=== PATIENT | female | born 1980 | race Caucasian/White ===

== ENCOUNTER → 2024-11-08 07:53 | Outpatient (REF) | payer BC, SELFPAY ==
--- OUTSIDE RECORDS SUMMARY | 2024-11-08 07:58 | XMS_ITS | Encounter Summary ---
Author Organization [facility] Address [address] [place] [address] [place] [address] Phone Care Team Providers Care Wallboard Worker Name Role Phone Kimberlyn Hill ECHO TECHNICIAN Primary Care Provider [phone] Marlon Leos MD Unavailable Edwige Blanchard Unavailable [phone] Madison Mcdonough OD Unavailable Edwige Swain OD Unavailable [phone] Sid Luke OD Unavailable [phone] Susana Rivera MD Unavailable Katheryn Alarcon Unavailable [phone] Encounter Details Date Type Department Care Team (Late st Contact Info) Description 03/21/2022 Transcribe Orders [facility] [address] [place] [address] Kimberlyn Hill CNP [address] [facility] [place] [address] Social History Tobacco Use Types Packs/Day Years Used Date Smoking Tobacco: Never Smokeless Tobacco: Never Alcohol Use Standard Drinks/Week Comments Not Currently 0 (1 standard drink = 0.6 oz pure alcohol) None since summer 2019 (2020) Child or Family Care Answer Date Record ed Do you have problems with on e of the following making it difficult for you to work, study, or receive health care? No 01/22/2021 Education Answer Date Recorded Are you interested in help w ith more adult education (for example, completing high school, GED, job training, learning the [place] language, technical skills, or developing parenting skills)? No 01/22/2021 Are you concerned about learning? Not on file 01/22/2021 Not on file 01/22/2021 Not on file 01/22/2021 Food Answer Date Recorded Within the past 6 months we worried whether our food would run out before we got money to buy more. Never True 01/22/2021 Within the past 6 months the food we bought just didn't last and we didn't have enough money to get more. Never True Paying for Meds Answer Date Recorded Do you have trouble paying for medicines? No 01/22/2021 Paying Utility Bills Answer Date Record ed Do you have trouble paying your heating or elect ricity bill? No 01/22/2021 Transportation Answer Date Recorded Has the lack of transportati on kept you from medical appointments or from getting medications? 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 Not on file Not on file documented as of this encounter Plan of Treatment Upcoming Encounters Date Type Department Care Team (Late st Contact Info) Description 04/14/2023 Procedure Pass [address] [address] 02/07/2025 1:30 PM EST Office Visit [facility] [address] [place] [address] Kimberlyn Hill CNP [address] [place] [address] 02/14/2025 2:00 PM EST Appointment [address] [address] Kimberlyn Hill CNP [address] [facility] [place] [address] [email or web address] 08/22/2025 1:00 PM EDT Office [facility] [address] [place] [address] Kimberlyn Hill CNP [address] [facility] [place] [address] [email or web address] documented as of this encounter Visit Diagnoses Not on filedocumented in this encounter Additional Health Concerns Assessment Noted Time PHQ-2 Depression Total Score: 0 01/23/20 21 1:29 PM EST documented as of this encounter Care Teams Wallboard Worker Relationship Specialty Start Date End Date Kimberlyn Hill CNP [address] [facility] [place] [address] PCP - General Family Medicine 06/04/18 Marlon Leos MD [address] [place] [address], [address] [place] [address] [email or web address] Insurance Assigned Provider 05/13/23 Edwige Blanchard PA [address] [place] [address] Unknown Provider Specialty 01/22/21 Madison Mcdonough OD [address] [place] [address] Optometry 01/22/21 08/05/24 Edwige Swain OD [address] [place] [address] Optometry 04/14/23 08/05/24 Sid Luke OD [address] [facility] [address] [place] [address] Optometry 08/06/24 Susana Rivera MD [address] [place] [address], [address] [place] [address] [email or web address] Obstetrics and Gynecology 08/06/24 Katheryn Alarcon PA [address] [place] [address] [email or web address] Physician Color Television Console Monitor 08/06/24 documented as of this encounter Additional Source Comments The information contained in this document represents components of the legal health record. It is not the complete legal health record.[facility]
--- OUTSIDE RECORDS SUMMARY | 2024-11-08 07:58 | XMS_ITS | Encounter Summary ---
Author Organization [facility] Address [address] [place] [address] [place] [address] Phone Care Team Providers Care Counter Hand Name Role Phone Kimberlyn Hill HUMANE OFFICER Primary Care Provider [phone] Marlon Leos MD Unavailable Edwige Blanchard PA Unavailable [phone] Madison Mcdonough OD Unavailable Edwige Swain OD Unavailable Sid Luke OD Unavailable [phone] Susana Rivera MD Unavailable Katheryn Alarcon PA Unavailable Reason for Visit * Reason Onset Date Comments Animal Bite 08/08/2022 Encounter Details Date Type Department Care Team (Late st Contact Info) Description 08/08/2022 Nurse Triage [facility] [address] [place] [address] [place] [address] Kimberlyn Hill CNP [address] [facility] [place] [address] Animal Bite Social History Tobacco Use Types Packs/Day Years Used Date Smoking Tobacco: Never Smokeless Tobacco: Never Alcohol Use Standard Drinks/Week Comments Not Currently 0 (1 standard drink = 0.6 oz pure alcohol) None since summer 2019 (2022) Child or Family Care Answer Date Record ed Do you have problems with on e of the following making it difficult for you to work, study, or receive health care? No 04/06/2022 Education Answer Date Recorded Are you interested in help w ith more adult education (for example, completing high school, GED, job training, learning the [place] language, technical skills, or developing parenting skills)? No 04/06/2022 Food Answer Date Recorded Within the past 6 months we worried whether our food would run out before we got money to buy more. Never True 04/06/2022 Within the past 6 months the food we bought just didn't last and we didn't have enough money to get more. Never True Residential Stability Answer Date Recor ded What is your housing situation today? I have sharlene sing 04/06/2022 How many times have you move d in the past 12 months? Zero (I did not move) 04/06/2022 Paying for Meds Answer Date Recorded Do you have trouble paying for medicines? No 04/06/2022 Paying Utility Bills Answer Date Record ed Do you have trouble paying your heating or elect ricity bill? No 04/06/2022 Transportation Answer Date Recorded Has the lack of transportati on kept you from medical appointments or from getting medications? No 04/06/2022 Unemployment Answer Date Recorded Are you currently unemployed or working on a part-time or temporary basis, and looking for work? No 04/06/2022 Digital Access Answer Date Recorded No 07/04/2022 No 07/04/2022 Reliable internet access at home? Not on file 07/04/2022 Device with a working camera? 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 The cat ran up to her and bit her lower leg.There are 4 puncture bites from cat's top and bottom teeth. She has been fostering this cat so they do not know herwhole background. The cat has had rabies shots. She describes the wounds as red, swollen, and tender to touch. There are red bands around each puncture bite. There are 1/2 red streaks from one of the bites. She has been cleaning the wounds in the shower, she initially cleaned them with soap and water and has been putting bacitracin on them since this happened. She noticed some clear discharge from the wounds yesterday but nothing today. No reports of pus or yellow/green discharge. No fevers, no headaches or feelings of being unwell. She has not had any tetanus shots in the past 5 years. Nurse Triage Encounter Note Reason for Triage Radha Hopper contacted office for Animal Bite Call Disposition Schedule Same Day Visit/Appt Patient/caregiver understands and will follow disposition: Yes Patient/caregiver understands and will follow care advice: Yes, Plans To Follow Advice Disposition Comments: Protocols used: Animal Eius-Blykb-Zi Care Advice Given Care Advice Patient/Caregiver understands and will follow care advice?: Yes, plans to follow advice GO TO OFFICE NOW: * You need to be examined. Come into the office right now. CLEAN THE WOUND: * Wash all bites and scratches right away with soap and water for 5 minutes. * Then rinse the area with water for 2 to 3 minutes. * This will help decrease the chance of infection. ANTIBIOTIC OINTMENT: * Put a small amount of antibiotic ointment on the wound once a day for 3 days. * You can get this rmay-rjm-zakascl at a drugstore. Patient will call back with additional questions or if symptoms change or worsen Edwige Motta RN Reason for Disposition and Assessment Reason for Disposition ??? Puncture wound (hole through the skin) from cat (teeth or claws) ??? Looks infected (spreading redness, red streak, or pus) Protocols used: ANIMAL [id number] * Chary Ryan - 08/08/2022 9:38 AM EDT Patient states she has a cat bite that happened about 2 days ago. There are four puncture varghese on her leg. She said the area around the varghese are red and painful. She is wondering if it could be infected and would like to pls be contacted by nursing Please advise. Thank you documented in this encounter Plan of Treatment Upcoming Encounters Date Type Department Care Team (Late st Contact Info) Description 04/14/2023 Procedure Pass [address] [id number] 02/07/2025 1:30 PM EST Office Visit [address] [place] [address] Kimberlyn Hill CNP [address] [place] [address], [address] [place] [address] 02/14/2025 2:00 PM EST Appointment [address] [address] Kimberlyn Hill CNP [address] [place] [address], [address] [place] [address] 08/22/2025 1:00 PM EDT Office Visit [address] [address] Kimberlyn Hill CNP [address] [place] [address], [address] [place] [address] documented as of this encounter Visit Diagnoses Not on filedocumented in this encounter Additional Health Concerns Assessment Noted Time PHQ-2 Depression Total Score: 0 04/07/19 23 3:42 PM EST documented as of this encounter Care Teams Counter Hand Relationship Specialty Start Date End Date Kimberlyn Hill CNP [address] [place] [address], [address] [place] [address] PCP - General Family Medicine 06/04/18 Marlon Leos MD [address] [facility] [place] [address] Insurance Assigned Provider 05/13/23 Edwige Blanchard PA [address] [facility] [address] [place] [address] Unknown Provider Specialty 01/22/21 Madison Mcdonough OD [address] [place] [address] Optometry 01/22/21 08/05/24 Edwige Swain, FABRICIO [address] [place] [address] Optometry 04/14/23 08/05/24 Sid Luke OD [address] [place] [address] [address] [place] [address] Optometry 08/06/24 Susana Rivera MD [address] [facility] [place] [address] Obstetrics and Gynecology 08/06/24 Katheryn Alarcon PA [address] [place] [address] [email or web address] Physician Bilingual Legal Assistant 08/06/24 documented as of this encounter Additional Source Comments The information contained in this document represents components of the legal health record. It is not the complete legal health record.[facility]
--- OUTSIDE RECORDS SUMMARY | 2024-11-08 07:58 | XMS_ITS | Encounter Summary ---
Author Organization [facility] Address [address] [place] [address] [place] [phone] Phone Care Team Providers Care Shoe Handler Name Role Phone Kimberlyn Hill CNP Primary Care Provider [phone] Marlon Leos MD Unavailable [phone] Edwige Blanchard Unavailable [phone] Sid Luke OD Unavailable [phone] Susana Rivera MD Unavailable Katheryn Alarcon Unavailable Reason for Visit * Reason Onset Date Comments Triage 10/31/2024 Green + new back and hip pain + 1 week Encounter Details Date Type Department Care Team (Late st Contact Info) Description 10/31/2024 Telephone [facility] Medicine [address] [place] [id number] Kimberlyn Hill CNP [address] [facility] [place] [address] [email or web address] Triage (Green + new back and hip pain + 1 week) Social History Tobacco Use Types Packs/Day Years Used Date Smoking Tobacco: Never Smokeless Tobacco: Never Alcohol Use Standard Drinks/Week Comments Yes 0 (1 standard drink = 0.6 oz pure alcohol) Once a month. Rare since summer 2019 (2024) Child or Family Care Answer Date Record ed Do you have problems with on e of the following making it difficult for you to work, study, or receive health care? No 08/06/2024 Education Answer Date Recorded Are you interested in help w ith more adult education (for example, completing high school, GED, job training, learning the [place] language, technical skills, or developing parenting skills)? No 08/06/2024 Are you concerned about learning? Not on file 08/06/2024 No 08/06/2024 Yes 08/06/2024 Food Answer Date Recorded Within the past 6 months we worried whether our food would run out before we got money to buy more. Never True 08/06/2024 Within the past 6 months the food we bought just didn't last and we didn't have enough money to get more. Never True Residential Stability Answer Date Recor ded What is your housing situation today? I have sharlene sing 08/06/2024 How many times have you move d in the past 12 months? Zero (I did not move) 08/06/2024 Paying for Meds Answer Date Recorded Do you have trouble paying for medicines? No 08/06/2024 Paying Utility Bills Answer Date Record ed Do you have trouble paying your heating or elect ricity bill? No 08/06/2024 Transportation Answer Date Recorded Has the lack of transportati on kept you from medical appointments or from getting medications? No 08/06/2024 Unemployment Answer Date Recorded Are you currently unemployed or working on a part-time or temporary basis, and looking for work? No 08/06/2024 Digital Access Answer Date Recorded No 08/06/2024 Yes 08/06/2024 Do you have reliable internet access at home? Ye s 08/06/2024 Do you have a device (e.g., phone, tablet, computer) with a working camera? Yes 08/06/2024 Intimate Partner Violence Answer Date R ecorded Denied Basic Needs Not on file 08/06/2024 In the past 12 months have y ou been in a relationship with a person who hurts, threatens, or tries to control you? No 08/06/2024 Worried food would run out Not on file 08/06 In the past 12 months have y ou been in a relationship with a person who hurts, threatens, or tries to control you? 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 1 week Have you ever experienced these symptoms before? NO Reason patient was not scheduled? VV 10/31 Additional Information: Pt turned the wrong way last week and injured her low back and hip Schedule appointment or offer Care Alternative Options provided in [employer] Follow practice guidelines for routing directions Reason for Call = TRIAGE Comment = GREEN + symptom or NURSING ADVICE REQUEST if requesting to speak with nursing documented in this encounter Plan of Treatment Upcoming Encounters Date Type Department Care Team (Late st Contact Info) Description 04/14/2023 Procedure Pass [address] [address] 02/07/2025 1:30 PM EST Office Visit [facility] Medicine [address] [place] [address] [place] [address] Kimberlyn Hill, HEAD TRACK COACH [address] [place] [address], [address] [place] [address] 02/14/2025 2:00 PM EST Appointment [address] [address] Kimberlyn Hill HEAD TRACK COACH [address] [place] [address], [address] [place] [address] 08/22/2025 1:00 PM EDT Office [facility] [address] [place] [address] Kimberlyn Hill CNP [address] [facility] [place] [address] documented as of this encounter Visit Diagnoses Not on filedocumented in this encounter Additional Health Concerns Assessment Noted Time PHQ-2 Depression Total Score: 0 08/07/19 1:37 PM EDT documented as of this encounter Care Teams Shoe Handler Relationship Specialty Start Date End Date Kimberlyn Hill CNP [address] [place] [address], [address] [place] [address] PCP - General Family Medicine 06/04/18 Marlon Leos MD [address] [place] [address], [address] [place] [address] [email or web address] Insurance Assigned Provider 05/13/23 Edwige Blanchard PA [address] [place] [address] [address] [place] [address] Unknown Provider Specialty 01/22/21 Sid Luke OD [address] [place] [address] [address] [place] [address] Optometry 08/06/24 Susana Rivera MD [address] [place] [address], [address] [place] [address] Obstetrics and Gynecology 08/06/24 Katheryn Alarcon PA [address] [place] [phone] [email or web address] Physician [employer] Research Senior Project Manager 08/06/24 documented as of this encounter Additional Source Comments The information contained in this document represents components of the legal health record. It is not the complete legal health record.[facility]
--- OUTSIDE RECORDS SUMMARY | 2024-11-08 07:58 | XMS_ITS | Clinical Summary ---
Author Organization [facility] Address [address] [place] [id number] Phone Care Team Providers Care Floral Designer Name Role Phone DannyKimberlyn farrell [employer] Primary Care Provider [phone] Marlon Leos MD Unavailable Edwige Blanchard Unavailable [phone] Sid Luke OD Unavailable [phone] Susana Rivera MD Unavailable Katheryn Alarcon Unavailable [phone] Allergies Active Allergy Reactions Criticality Noted Date Comments Quetiapine 08/06/2019 agitation Medications loratadine (CLARITIN) 10 mg tablet Take 10 mg by mouth daily. Active lamoTRIgine (LAMICTAL) 150 MG tablet Take 150 mg by mouth daily. Active ARIPiprazole (ABILIFY) 5 MG tablet Take 5 mg by mouth daily. Active DULoxetine (CYMBALTA) 40 mg capsule Take 40 mg by mouth daily. 1 Active cholecalciferol (VITAMIN D3) 25 MCG (1,000 unit) tablet Take 1,000 Units by mouth daily. Active dextroamphetami ne-amphetamine (ADDERALL XR) 20 MG 24 hr capsule Take 1 capsule by mouth every morning. 4 Active clonazePAM (KLONOPIN) 0.5 MG tablet 4 Active progesterone (PROMETRIUM) 100 mg capsule Take 1 capsule (100 mg total) by mouth nightly at bedtime. 90 capsule 3 5 Active lisinopril (PRINIVIL,ZESTR IL) 30 MG tablet Take 1 tablet (30 mg total) by mouth daily. 90 tablet 3 5 Active propranoloL (INDERAL LA) 60 mg 24 hr capsuleIndicati ons:Migraine with aura and without status migrainosus, not intractable Take 1 capsule (60 mg total) by mouth daily. 30 capsule 2 5 Active SUMAtriptan (IMITREX) 100 MG tablet Take 1 tablet (100 mg total) by mouth once as needed for migraine. Can repeat dose in 2 hours if needed. Do not exceed 2 doses in a 24 hour period. Max dose 200mg/ day 27 tablet 5 Active estradioL (DIVIGEL) 0.5 mg/0.5 gram (0.1 %) transdermal gel packet Place 1 packet onto the skin daily. Apply one packet daily to the right or left upper thigh on alternating days. 90 packet 3 5 Active lidocaine (LIDODERM) 5 %Indications:Ac teagan left-sided low back pain without sciatica Place 1 patch onto the skin daily. Remove & Discard patch within 12 hours or as directed by 30 patch 5 Active predniSONE (DELTASONE) 10 MG tabletIndicatio ns:Acute left-sided low back pain without sciatica Take 4 tablets (40 mg total) by mouth daily for 5 days. 20 tablet 5 11/06/19 25 Active Problems Problem Noted Date Diagnosed Date Acute left-sided low back pain without sciatica 10/31/2024 Assessment & Plan (10/31/2024 12:04 PM EDT): Acute low back/l hip pain from bending a strange direction a week ago This has happened in the past to her No red flags, No saddle paraesthesia or numbness and tingling Likely MSK strain Spoke about heat + stretches Plan to send prednisone (spoke about s/e) to help with pain and inflammation + lidocaine patch + PT Will reach out if worsening or change of symptoms Patient verbalized understanding and agrees with this plan of care Reviewed signs and symptoms and reasons to seek medical care Orders: lidocaine (LIDODERM) 5 %; Place 1 patch onto the skin daily. Remove & Discard patch within 12 hours or as directed by MD Ambulatory referral to External Physical Therapy predniSONE (DELTASONE) 10 MG tablet; Take 4 tablets (40 mg total) by mouth daily for 5 days. Perimenopausal symptoms 05/03/2024 Overview (05/03/2024): In particular 6 months of daytime hot flashes, night sweats which can be worse before menses, waking her at night sheets soaking with significant sleep disturbance; inconsistency with menstrual cycle, as much is 6 weeks apart; some impact on mood (bipolar has had some change in medications Assessment & Plan (08/06/2024 2:26 PM EDT): She was prescribed HT but has not taken consistently. She is bothered by dysmenorrhea and sometimes heavy bleeding. Check TSH as previously ordered and return to [employer]. LNG-IUD, ablation, hysterectomy briefly discussed. Assessment & Plan (05/03/2024 7:23 PM EDT): Discussed perimenopause in general the constellation of symptoms can vary a lot from 1 person to the other, there is no way to predict if this will worsen or not. Recommend checking TSH , there is no specific female hormonal testing will absolutely confirm or exclude perimenopause Reviewed various prescription type options, including nonhormonal measures as well as hormone therapy. Pros and cons risks and benefits of menopausal type HRT reviewed. Also she does not have to initially start with estrogen plus progesterone, she could certainly start with 1 or the other see how she responds after a month and determine if she would continue on that regimen or consider adding the other type. We discussed the options of starting either estradiol therapy first versus the progesterone. In particular because of her concerns about sleep in the night sweats, encouraged trying progesterone nightly at 100 mg a day and see how she feels after about a month on that Encounter for general adult medical examination with abnormal findings 04/14/2023 Assessment & Plan (08/06/2024 2:26 PM EDT): Eligible for Covid vaccine at the pharmacy. Warning signs of breast cancer and breast self-awareness reviewed. Pap smear is overdue. After positioning for the exam Radha states, It's my decision right. I don't have to do [the pap smear]. We discussed screening for cervical cancer. She declines the test. Colon cancer screening options review, including with stool based studies and colonoscopy. She elects Cologuard and verbalizes understanding of the risk of missed malignancy, risk of false negative. Assessment & Plan (04/14/2023 11:49 AM EST): Immunizations are up to date. Eligible for Covid vaccine at the pharmacy. Warning signs of breast cancer and breast self-awareness reviewed. Baseline mammogram discussed and ordered. Pap smear is due but she is on day one of her period. We'll do this at her BP check in 6 months. CRC screening age 44. Labs are up to date (reviewed from 02/2023). Continue regular dental and eye care. Family history of melanoma 04/14/2023 Assessment & Plan (04/14/2023 11:52 AM EST): Her mother was diagnosed recently and treated with local excision; no metastasis present. Referred to [facility]. Bipolar 1 disorder 09/04/2019 Assessment & Plan (08/06/2024 2:26 PM EDT): Managed by psychiatry. No recent medication adjustments. She sees a therapist regularly. Assessment & Plan (04/19/2024 12:30 PM EDT): Managed by psychiatry. She has wondered about hypomania. I recommended that she reach out to her prescriber to discuss medication for sleep or medication adjustment for hypomania. She will try to find some time for herself this weekend. She is in a supportive relationship. Support offered. Assessment & Plan (04/14/2023 11:50 AM EST): Followed by KELLY Blanchard q3 months. She is tapering off lithium and tolerating this well. She hopes to come off Abilify next. She notes significant improvement in mood symptoms since separation. Assessment & Plan (11/18/2022 12:46 PM EDT): She is due for labs including lithium level through her prescriber and will plan to do this soon. Attention deficit hyperactiv ity disorder (ADHD), predominantly inattentive type 01/16/2017 Assessment & Plan (08/06/2024 2:26 PM EDT): Managed by psychiatry. Could be contributing to elevated HR. Reduce caffeine and monitor HR at home. She agrees. Assessment & Plan (04/14/2023 11:51 AM EST): Back on Adderall XR through his psychiatric prescriber. Assessment & Plan (12/13/2017 9:24 AM EST): Trial of Adderall XR. Mood symptoms appear to be fairly well controlled. Celiac disease 01/16/2017 Assessment & Plan (08/06/2024 2:26 PM EDT): She had an unintentional gluten exposure recently with a week of bloating, joint pain, brain fog. Continue to avoid as able. Assessment & Plan (04/14/2023 11:49 AM EST): Continue to avoid gluten. B12 was good in February. Assessment & Plan (11/18/2022 12:46 PM EDT): Not supplementing. Update levels. Assessment & Plan (08/12/2022 10:09 AM EDT): Planning vitamin levels in the next couple of months. Cervical radiculopathy due t o degenerative joint disease of spine 01/16/2017 Assessment & Plan (05/15/2017 8:42 AM EDT): Recommend PT for cervical traction, reassess after PT or if worsening. Essential (primary) hypertension 01/16/2017 Assessment & Plan (08/06/2024 2:26 PM EDT): Adequately controlled with lisinopril monotherapy. Assessment & Plan (04/19/2024 12:30 PM EDT): Blood pressure is well controlled today. She endorses increased stress, more caffeine intake, and worse sleep over the past 1+ month. If the lightheadedness with forward bending persists we can trial reduction of lisinopril to 20 mg daily with close follow up in the office. Otherwise, work on reducing caffeine, consider compression socks (works remotely and sits most of the day). Assessment & Plan (04/14/2023 11:52 AM EST): Well controlled on lisinopril. Continue the same. Assessment & Plan (11/18/2022 12:45 PM EDT): Well controlled on lisinopril monotherapy. Continue the same. Book next CPE now. Assessment & Plan (12/13/2017 9:25 AM EST): Jose Guadalupe nifedipine, warned that Adderall may raise her blood pressure, dose adjustments may be necessary. Family history of thyroid disease 01/16/2017 Foraminal stenosis of cervical region 01/16/2017 Frostbite of foot 01/16/2017 Hearing loss 01/16/2017 Migraine with aura and witho ut status migrainosus, not intractable 01/16/2017 Assessment & Plan (09/24/2024 12:23 PM EDT): She has tolerated the addition of propranolol LA 60 mg daily for migraine prophylaxis. She has a BP check in the office in February. We reviewed common side effects that would warrant sooner evaluation, including exercise intolerance, fatigue, depression, drop in HR. For now, she will continue the propranolol. We discussed that triptans are often not completely effective for the pain component of migraines. I encouraged her to take ibuprofen or APAP or Excedrin with the triptan dose. Trial increased dose of sumatriptan 100 mg at first sign of migraine. Max dosing reviewed. To ER with worst headache of her life. Call with increasing headaches. Consider non-triptan if she continues to have incomplete effect. Consider brain imaging and neurology referral if symptoms worsen or do not improve. Assessment & Plan (08/21/2024 2:52 PM EDT): Given increase in frequency and lack of response with abortive therapy will trial preventative migraine treatment. Based on patient's history and current medications recommended trial of propranolol ER daily. She is advised and aware of common side effects. Will monitor and have follow up with PCP in one month to reassess response. Pt verbalized understanding, agreeable to plan. Orders: propranoloL (INDERAL LA) 60 mg 24 hr capsule; Take 1 capsule (60 mg total) by mouth daily. Assessment & Plan (04/19/2024 12:30 PM EDT): She has had some symptoms consistent with ocular migraine without headache. Sumatriptan refilled to have on hand. Nausea is sometimes related to this and sometimes not. Monitor migraine/aura patterns. Assessment & Plan (04/14/2023 11:51 AM EST): Migraines have essentially resolved. Call with changing headache pattern. DAINA on CPAP 01/16/2017 Assessment & Plan (08/06/2024 2:26 PM EDT): Managed by sleep medicine of . She uses it nightly. Assessment & Plan (04/14/2023 11:51 AM EST): Continue regular use of CPAP; sleep medicine follow up. Assessment & Plan (11/18/2022 12:45 PM EDT): Continue regular use of CPAP. Follow up with sleep medicine as recommended. Resolved Problems Problem Noted Date Diagnosed Date Resolved Date Bite of right lower leg with infection 08/12/2022 08/06/2024 Assessment & Plan (08/12/2022 10:11 AM EDT): Improving. Continue Augmentin and probiotics. I recommended that she have another visit in a week but she can cancel sooner if symptoms are completely resolved. Call with fever or chills, increased redness or swelling. Hemorrhagic ovarian cyst 10/26/2019 Assessment & Plan (10/26/2019 10:50 AM EDT): Patient currently asymptomatic. Ultrasound characteristics consistent with hemorrhagic ovarian cyst on the left. Diagnosis reviewed with patient. No follow-up needed at this time. Menorrhagia with irregular cycle 10/25/2019 04/06/2022 Assessment & Plan (10/26/2019 10:52 AM EDT): Recent pelvic US. Likely AUB-O. Treatment options with hormonal contraception discussed. Not candidate for ocp due to htn and use of Lamictal. Pt good candidate for Kyleena. States she has difficult time with speculum exams. Reassured pt that with premedication more likely than not she can get through the procedure. Use of NSAIDs with onset of pain reviewed to help reduce bleeding and associated cramping. Have suggested 600 mg ibuprofen every 6-8 hours or 800 mg every 8-12 hours. Expectant mgmt and endom ablation reviewed as well. Pt to consider options and will call if desiring treatment. Depression 01/16/2017 04/06/2022 Assessment & Plan (12/13/2017 9:25 AM EST): Stable symptoms, I think it is good to do a transition with her daughter who is autistic now and IEP at public school for preschool with services. This is new for the family. No role for increasing Cymbalta over 60 mg, not much benefit to be derived at that dose. Encounters Date Type Department Care Team Description 10/31/2024 11:40 AM EDT Telemedicine [facility] [address] [place] [id number] Sharmaine Hummel CNP Acute left-sided low back pain without sciatica (Primary Dx) 10/31/[address] [place] [address] Kimberlyn Hill CNP Triage (Green + new back and hip pain + 1 week) 09/24/2024 11:30 AM EDT Telemedicine - audio only [address] [place] [address] Kimberlyn Hill CNP Migraine with aura and without status migrainosus, not intractable (Primary Dx) 08/21/2024 2:30 PM EDT Telemedicine [address] [place] [address] Chary Palencia, DIETER Migraine with aura and without status migrainosus, not intractable (Primary Dx) from Last 3 Months Immunizations Immunization Administration Dates Next Due COVID-19 (Pre-11/28) Pfizer Vaccine, mRNA, PF 06/21/2020,05/30/2020 INFLUENZA, SPLIT VIRUS, TRIVALENT PF 04/19/2024, 10/28/2015 INFLUENZA, SPLIT VIRUS, TRIV ALENT W/ PRESERVATIVE IM 10/23/2013 Influenza Quadrivalent MDCK Preservative Free IM 02/23/2019 Influenza Quadrivalent Prese rvative Free IM 11/18/2022,04/06/2022,01/20/2021,2019,12/06/2016 Influenza Quadrivalent w/ Preservative IM 12/03/2014 Influenza Recombinant Osman valent Preservative Free IM 10/23/2017 Influenza trivalent preserva tive free intradermal 01/07/2013 Td (adult),2 Lf Tetanus Toxo id, PF, Adsorbed 08/08/2022 Tdap 09/27/2012 Family History Medical History Relation Comments Bipolar disorder Brother Bradycardia Brother Autism Daughter Other Daughter Imperforate seco nd vagina Single kidney Daughter Born to , An maliha Arrhythmia Father Implantable jose ce Benign prostatic hyperplasia Father Neg ative prostate biopsy Celiac disease Father Heart disease Father Hole in the hea rt Hypertension Father Hyperthyroidism Father Macular degeneration Father Stroke Father Stroke Maternal Grandfather COPD Maternal Grandmother Smoker Heart failure Maternal Grandmother Lung cancer Maternal Grandmother Diagnosed l ate in life Uterine cancer Maternal Grandmother Diagnosed a ge 70s Hypertension Mother Melanoma Mother Osteosclerosis Mother Uterine prolapse Mother Repaired Alzheimer's disease Paternal Grandfather Cancer Paternal Grandmother Unknown nuvia rose Coronary artery disease Paternal Grandmother Diabetes Paternal Grandmother Osteoporosis Paternal Grandmother Celiac disease Paternal Half-Brother Breast cancer Neg Hx Colon cancer Neg Hx Glaucoma Neg Hx Pancreatic cancer Neg Hx Prostate cancer Neg Hx Relation Status Comments Brother Alive Daughter Alive Father Alive Maternal Grandfather Maternal Grandmother Mother Alive Paternal Grandfather Paternal Grandmother Paternal Half-Brother Alive Social History Tobacco Use Types Packs/Day Years Used Date Smoking Tobacco: Never Smokeless Tobacco: Never Tobacco Cessation:Counseling Given: Not Answered Alcohol Use Standard Drinks/Week Comments Yes 0 [...] high school, GED, job training, learning the Greek language, technical skills, or developing parenting skills)? 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 Not on file Not on file Last Filed Vital Signs Vital Sign Reading Time Taken Comments Blood Pressure 108/60 08/06/2024 1:38 PM EDT Pulse 111 08/06/2024 1:38 PM EDT Temperature 36.7 C (98 F) 08/06/2024 1:38 PM EDT Respiratory Rate 16 09/01/2023 10:26 AM EDT Oxygen Saturation 98% 08/06/2024 1:38 PM EDT Inhaled Oxygen Concentration - - Weight 67.6 kg (149 lb) 08/06/2024 1:38 PM EDT Height 169 cm (5' 6.54 ) 08/06/2024 1:38 PM EDT Body Mass Index 23.66 08/06/2024 1:38 PM EDT Plan of Treatment Upcoming Encounters Date Type Department Care Team (Late st Contact Info) Description 04/14/2023 Procedure Pass [address] [address] 02/07/2025 1:30 PM EST Office Visit [facility] [address] [place] [address] [place] [address] Kimberlyn Hill, [employer] [address] [place] [address], [address] [place] [address] 02/14/2025 2:00 PM EST Appointment [address] [address] Kimberlyn Hill, [employer] [address] [place] [address], [address] [place] [address] 08/22/2025 1:00 PM EDT Office Visit [facility] [address] [place] [address] Kimberlyn Hill, [employer] [address], [address] [place] [address] [email or web address] Health Maintenance Due Date Last Done Comments MAMMOGRAM 2019 COLOGUARD 05/18/2024 COLONOSCOPY 05/18/2024 COLORECTAL CANCER SCREENING 05/18/2024 FIT TEST 05/18/2024 FOBT 05/18/2024 SIGMOIDOSCOPY 05/18/2024 VIRTUAL COLONOSCOPY 05/18/2024 INFLUENZA VACCINE (#1) 2024 , 11/18/2022, 04/06/2022, Additional history exists COVID-19 VACCINE (2024- season) 2024 01/20/2021, 06/21/2020, 05/30/2020 BLOOD PRESSURE 02/06/2025 08/06/2024 CREATININE LEVEL 04/19/2025 04/19/2024, 01/2024, 03/21/2022, Additional history exists POTASSIUM LEVEL 04/19/2025 04/19/2024, 02/06, 03/21/2022, Additional history exists DEPRESSION SCREENING 08/06/2025 08/06/2024 PAP SMEAR 08/07/2025 04/18/2018, 04/06, 07/19/2013 Postponed from 04/19/2023 (Patient Declines / Guardian Declines) LIPID PANEL 02/18/2028 02/17/2023, 03/09, 03/21/2022, Additional history exists Adult Td,Tdap Booster 08/08/2032 08/08/2022, 013 HIV ONE-TIME SCREENING (18-65 YEARS) Completed 12/12/2019 HEPATITIS C SCREENING Completed 03/21/2022, 023 SMOKING STATUS SCREENING (Once After 26 Yrs) Completed 09/24/2024 HEPATITIS A VACCINES Aged Out No long er eligible based on patient's age to complete this topic HIB VACCINES Aged Out No longer eligi ble based on patient's age to complete this topic MENINGOCOCCAL VACCINES (ACWY) Aged Out No longer eligible based on patient's age to complete this topic MENINGOCOCCAL VACCINES (B) Aged Out N o longer eligible based on patient's age to complete this topic PNEUMOCOCCAL VACCINES (0-49 years) Aged Out No longer eligible based on patient's age to complete this topic Medical Devices Not on file Procedures Procedure Name Priority Date/Time Associated Diagnosis Comments COMPREHENSIVE METABOLIC PANEL Routine 04/19/2024 12:49 PM EDT Nausea LIPID PANEL Routine 02/17/2023 9:30 AM EST Bipolar I disorder, most recent episode hypomanic HEPATITIS C ANTIBODY, QUALITATIVE Routine 03/21/2022 9:04 AM EST Need for hepatitis C screening test PAP TEST Routine 04/18/2018 12:00 AM EDT from Last 3 Months or Most Recently Relevant to Health Maintenance Results * Comprehensive metabolic panel (04/19/2024 12:49 PM EDT) SODIUM 137 133 - 146 mmol/L [facility] POTASSIUM 4.7 3.3 - 5.1 mmol/L [facility] CHLORIDE 100 96 - 108 mmol/L [facility] CO2 27 21 - 35 mmol/L [facility] BUN 9 6 - 19 mg/dL [facility] CREATININE 0.70 0.5 - 1.5 mg/dL [facility] GLUCOSE 93 70 - 99 mg/dL [facility] ALBUMIN 4.6 3.9 - 4.8 g/dL [facility] TOTAL PROTEIN 7.3 6.5 - 8.0 g/dL [facility] CALCIUM 9.7 8.4 - 10.3 mg/dL [facility] ALKALINE PHOSPHATASE 71 39 - 117 U/L [facility] TOTAL BILIRUBIN 0.3 0.0 - 1.2 mg/dL [facility] AST 15 0 - 37 U/L [facility] ALT 14 0 - 40 U/L [facility] GLOBULIN 2.7 1 - 4.8 g/dL [facility] EGFR 109 >59 mL/min/1.7 3m2 [facility] Comment:Estimated glomerular filtration rate calculated using the CKD-EPI refit equation. ANION GAP 15 10 - 20 mmol/L [facility] Blood 04/19/2024 12:4 9 PM EDT 04/19/2024 12:51 PM EDT us Kimberlyn Hill [employer] LAB BLOOD ORDERABLES Karen l Result Performing Organization Address [facility] Co de Phone Number [address] [address] * Lipid panel (02/17/2023 9:30 AM EST) HDL 47 mg/dL [facility] Comment: Interpretation <40 mg/dL: Low HDL cholesterol (major risk factor for CHD) Greater than or equal to 60 mg/dL: High HDL cholesterol ( negative risk factor for CHD) HDL - cholesterol is affected by a number of factors, e.g. smoking, excerise, hormones, sex and age. CHOLESTEROL 185 0 - 240 mg/dL [facility] TRIGLYCERIDES 74 30 - 160 mg/dL [facility] LDL 123 50 - 129 mg/dL [facility] Comment: LDL levels in terms of risk for coronary heart disease: <100 mg/dL: Optimal 100-129 mg/dL: Near or above optimal 130-159 mg/dL: Borderline high 160-189 mg/dL: High >190 mg/dL: Very High CARDIAC RISK RATIO 3.9 3.3 - 4.4 C [facility] Blood 02/17/2023 9:30 AM EST 02/17/2023 9:33 AM EST us Edwige Blanchard [employer]CH[employer]ICAL SYSTEMS DESIGNER LAB BLOOD ORDERABLES Karen l Result Performing Organization Address [facility] Co de Phone Number [address] [address] * Hepatitis C antibody, qualitative (03/21/2022 9:04 AM EST) HCV NON-REACTIV E NON-REACTI VE [facility] Blood 03/21/2022 9:04 AM EST 03/21/2022 9:08 AM EST Kimberlyn Hill [facility] LAB BLOOD ORDERABLES Karen mace Result [address] [address] * Pap Smear (04/18/2018 12:00 AM EDT) 04/18/2018 04/19/2018 12: 46 PM EDT Narrative SEE NARRATIVE - 04/24/2018 8:45 AM EDT [address] [address] Shank Tapper: Vanessa Lamar MD [employer] Cytology Report FINAL DIAGNOSIS A. PAP SMEAR (SUREPATH) CE: SPECIMEN ADEQUACY: Satisfactory for evaluation; transformation zone present. INTERPRETATION: NEGATIVE FOR INTRAEPITHELIAL LESION OR MALIGNANCY. Electronically Signed Out By: EDE Robbins(ASCP) The Pap test is a screening test primarily for squamous cancers and precursors and has associated false-negative and false-positive results. New technologies such as liquid-based preparations may decrease but will not eliminate all false-negative results. Regular sampling and follow-up of unexplained clinical signs and symptoms are recommended to minimize false negative results. PROCEDURES/ADDENDA HPV Testing (Requested) Ordered Date: 04/19/2018 HPV Test Negative for high-risk human papillomavirus types 16, 18, 45 and the Other high risk probe set (Includes 31, 33, 35, 39, 51, 52, 56, 58, 59, 66, 68) by amprice Onclarity HR-HPV analysis. Clinical correlation is advised. This HPV test was performed at [facility], [address] [place] [address]. This test has been FDA approved for [facility] cervical cytology specimens. The accuracy and precision of this test for all other specimen sources has been verified in the Cytopathology Laboratory of the [facility] and has not been cleared or approved by the U.S. Food and Drug Administration. Clinical correlation is advised. CLINICAL HISTORY Date of Last Menstrual Period: 04/15/2018 Other Clinical Conditions: Screening Pap SPECIMEN SOURCE A: PAP SMEAR (SUREPATH) CE Patient Name: CHELARADHA HAJI : 1980 (Age: 37) Sex: F Institution: [facility] Location: [facility] Date of Collection: 04/18/2018 Date of Reported: 04/23/2018 13:02 Results to: Kimberlyn Hill MSN Kimberlyn Hill LABORER [employer] CYTOLOGY ORDERABLES Edite d Result - Final SEE NARRATIVE from Last 3 Months or Most Recently Relevant to Health Maintenance Insurance PPO EPO [facility] PPO EPO PPO EPO [place] [address] [place] [address] PPO EPO PPO EPO PPO EPO PPO EPO [facility] PPO EPO Care Teams Floral Designer Relationship Specialty Start Date End Date Kimberlyn Hill CNP [address] [place] [address], [address] [place] [address] PCP - General Family Medicine 06/04/18 Marlon Leos MD [address] [place] [address], [address] [place] [address] Insurance Assigned Provider 05/13/23 Edwige Blanchard PA [address] [place] [address] [address] [place] [address] Unknown Provider Specialty 01/22/21 Sid Luke OD [address] [place] [address] [address] [place] [address] Optometry 08/06/24 Susana Rivera MD [address] [place] [address], [address] [place] [address] [email or web address] Obstetrics and Gynecology 08/06/24 Katheryn Alarcon PA [address] [place] [address] [email or web address] Physician Ged Instructor 08/06/24 Additional Source Comments The information contained in this document represents components of the legal health record. It is not the complete legal health record.[facility]
--- NOTE | 2024-11-08 08:03 | ECG_ITS ---
Test Reason : 739 QTC CHK Blood Pressure : */* mmHG Vent. Rate : 76 BPM Atrial Rate : 76 BPM P-R Int : 130 ms QRS Dur : 82 ms QT Int : 388 ms P-R-T Axes : 19 52 42 degrees QTcB Int : 436 ms Normal sinus rhythm Normal ECG No previous ECGs available Referred By: Candelaria Carlisle Electronically Signed By: BLACK WEISS
[2024-11-08 08:35] LABS: MANUAL DIFF FLAG NO
[2024-11-08 08:42] LABS: Hematocrit 38.4 % (37.0-47.0); Hemoglobin 13.6 g/dl (12.0-16.0); Imm Gran Abs Auto 0.01 X10*3/uL (0.00-0.03); Imm Gran Pct Auto 0.2 % (0.0-0.4); Lymphocytes Absolute Auto 1.4 X10*3/uL (1.2-4.9); Mean Corpuscular HGB Conc 35.4 g/dl (31.0-35.0); Mean Corpuscular Hemoglobin 30.2 pg (27.0-33.0); Mean Corpuscular Volume 85.1 fL (80.0-98.0); NRBC Abs Auto 0.000 X10*3/uL (0.0-0.012); NRBC Pct Auto 0.0 /100WBC (0.0-0.2); Platelet Count 320 X10*3/uL (160-400); Red Blood Count 4.51 X10*6/uL (4.20-5.50); White Blood Count 4.5 X10*3/uL (4.8-10.8)
[2024-11-08 09:07] LABS: Albumin Level 4.8 g/dL (3.5-5.0); Alkaline Phosphatase 66 U/L (39-117); Anion Gap 9 (12-20); Aspartate Amino Transferase 23 U/L (5-31); Blood Urea Nitrogen 10 mg/dL (9-16); Calcium 9.4 mg/dL (8.4-10.2); Carbon Dioxide 28 mmol/L (22-29); Chloride 105 mmol/L (96-108); Cholesterol 219 mg/dL (<200); Estimated Glomerular Filt Rate > 60; HDL Cholesterol 59 mg/dL (>40); Iron 227 mcg/dL (30-160); Magnesium 2.2 mg/dL (1.6-2.6); Percent Iron Saturation 68 % (15-50); Potassium 3.9 mmol/L (3.3-5.1); Sodium 138 mmol/L (135-145); Total Iron Binding Capacity 336 mcg/dL (228-428); Total Protein 7.6 g/dL (6.5-8.0); Triglycerides 80 mg/dL (<150); Unsaturated Iron Binding 109 ug/dL
[2024-11-08 09:09] LABS: Parathyroid Hormone Intact 44.3 pg/mL (8.7-77.1)
[2024-11-08 09:15] LABS: Syphilis Screen Nonreactive (Nonreactive)
[2024-11-08 09:16] LABS: Alanine Aminotransferase 30 U/L (0-31)
[2024-11-08 09:23] LABS: Free T4 (Free Thyroxine) 0.84 ng/dL (0.71-1.85); Thyroid Stimulating Hormone 1.26 uIU/mL (0.32-4.0)
[2024-11-08 09:32] LABS: Folate 6.7 ng/mL (> or = 4.0); Vitamin B12 816 pg/mL (200-900)
[2024-11-10 12:33] LABS: Follicle Stimulating Hormone 8.7 mIU/mL
[2024-11-12 22:28] LABS: Lyme Abs Screen <0.90 index
[2024-11-14 21:09] LABS: Babesia duncani Ab IgG (WA1) <1:256; E chaffeensis IgG <1:64 (<1:64); E chaffeensis IgM <1:20 (<1:20)
== END ==
LOC: HO.CARD 07:53
PROVIDERS: PCP Nurse Practitioner Adult Health; Visit Provider Psychiatry & Neurology Psychiatry
DX: F39 Unspecified mood [affective] disorder (principal); Z01.84 Encounter for antibody response examination; Z13.1 Encounter for screening for diabetes mellitus; Z13.6 Encounter for screening for cardiovascular disorders
CPT/HCPCS: 36415; 80053; 80061; 82306; 82607; 82672; 82746; 83001; 83002; 83036; 83090; 83540; 83735; 83970; 84100; 84144; 84146; 84207; 84403; 84425; 84439; 84443; 85025; 85652; 86617; 86618; 86666; 86753; 86780; 93005

== ENCOUNTER → 2024-11-08 08:03 | Outpatient (BNV) | payer BC, SELFPAY | PROVIDERS: PCP Nurse Practitioner Adult Health; Visit Provider Internal Medicine | DX: Z13.6 Encounter for screening for cardiovascular disorders (principal) | CPT/HCPCS: 93010 ==

== ENCOUNTER → 2024-11-12 08:30 | Outpatient (BNV) | payer BC, SELFPAY | PROVIDERS: Visit Provider Psychiatry & Neurology Psychiatry | DX: F31.4 Bipolar disorder, current episode depressed, severe, without psychotic features (principal); F41.1 Generalized anxiety disorder | CPT/HCPCS: 99214 ==

== ENCOUNTER 2024-11-25 08:45 | Outpatient (RCR) | payer BC, SELFPAY ==
[2024-11-04 11:59] VITALS: BMI 24.5
[2024-11-04 12:00] VITALS: BP 132/80; PULSE 84; TEMP 36.7
--- NOTE | 2024-11-06 20:04 | HO.PS.ADMBH ---
[facility] Date of Service: 11/05/24 Chief Complaint: anxiety Sources of Information: patient interviewed, chart reviewed and crisis/core team assessment reviewed HPI Narrative: Patient is a single 44 yo female with history of Bipolar I Disorder, anxiety, PTSD, Celiac Disease, HTN, chronic back pain,migraine headaches, who was referred to program through [facility] for struggling with anxiety, depression in the context of psychosocial stressors, in the process of divorce and dealing with chronic PTSD. I'm extremely depressed. Been struggling with depression my entire adult life . She reports 5 years ago she was in [facility] and at that time she was officially diagnosed with bipolar disorder, after experiencing recurrent periods of depression with mood dysregulation and has a history of psychotic symptoms (AH, VH, TH, grandiosity) when manic in the past although has been relatively stable in the past 5 years with treatment on various mood stabilizers. Problem started to emerge in the past couple months, ?I have been feeling so all over the place... Rushing can get quite severe in cycling nuria in the past few days. She is currently endorsing symptoms of feeling depressed and despairing as well as high irritability and restlessness. She was maitained for a long time on Abilify 5 mg, which due to acute SI was moved up to 10 mg last week. Reportedly the SI resolved and was able to sleep through the night at 10 mg, however she was unable to tolerate this for or then a few days, experiencing an increase in acute anxiety, a lot of physical agitation (likely akathisia), and earlier this week the dose was then lowered to 7.5 mg a day. Since then she has not been sleeping as well, getting about 6 hours, and feeling more on edge and irritable, low energy but unable to relax. Mornings depression is the worst. Patient has been dealing with suicidal thoughts in the past few weeks, sometimes with transient thoughts of overdosing on her medications, but denies any true intention or urge to harm herself. Nonethless she says that her girlfriend has been safeguarding the medication and only dispensing her a small amount at a time. She currently denies any SI, HI, AH, VH. Past Psychiatric History: [facility] x1: 5 yrs ago here [facility] No prior IPLOC,respite, detox/rehab admissions SA: denies SIB: denies Aggression or antisocial behaviors: denies Denies legal history Pertinent developmental hx: Previous diagnoses: Psychiatrist: Edwige Blanchard Therapist: Karolina Gonzalez PCP: Kimberyln Hill Previous trials: CURRENT MEDICATIONS: Abilify 7.5 mg qd Lamotrigine 175 mg qd Duloxetine 40 mg qam Adderall ER 20 mg qam Clonazepam 0.5 mg prn anxiety sleep Progesterone 100 mg Estradiol gel 5 mg daily Lisinopril 30 mg daily Sumatriptan 100 mg qd prn PMFSH Medical History (Updated 11/13/24 @ 08:05 by Candelaria Carlisle MD) Migraines Perimenopause Celiac disease H/O thyroid nodule Hypertension Narrative: query PMDD, migraines worse at start of menses h/o Lyme Disease Seizures: denies Concussions/TBI: denies LMP: 10/27 (irregular, cycles vary 12-30+days, and lasting between 4-11 days) Ht: 5'7 Wt: 155 lbs ALL: doxycycline, Seroquel Surgical History (Updated 11/04/24 @ 11:56 by Xochilt Lara RN) History of removal of ovarian cyst Family History: Father with anxiety Mother with anxiety, ADHD and trauma MGF with bipolar, alcoholism, institutionalized Brother (younger) with Bipolar II disorder Half brother with substance abuse Social History: Seperated, currently in process of divorce Lives at home with kids Diagnostics Vital Signs (24Hr): BMI result Body Mass Index 24.5 Meds/Allergies Meds Home Medications ?Medication ?Instructions ?Recorded ?Confirmed ?Type aripiprazole 10 mg tablet 10 mg PO DAILY 11/05/24 11/05/24 History clonazepam 0.5 mg tablet 0.5 mg PO DAILY PRN anxiety 11/05/24 11/05/24 History dextroamphetamine-amphetamine 5 mg 1 tab PO DAILY PRN ADHD 11/05/24 11/05/24 History tablet dextroamphetamine-amphetamine ER 1 cap PO DAILY 11/05/24 11/05/24 History 20 mg 24hr capsule,extend release duloxetine 40 mg capsule,delayed 40 mg PO DAILY 11/05/24 11/05/24 History release sprinkle estradiol 0.5 mg/0.5 gram (0.1 %) See Rx Instructions .Route .COMPLEX 11/05/24 11/05/24 History transdermal gel packet lamotrigine 150 mg tablet 150 mg PO DAILY 11/05/24 11/05/24 History lamotrigine 25 mg tablet 25 mg PO DAILY 11/05/24 11/05/24 History lidocaine 5 % topical patch 1 patch topical DAILY 11/05/24 11/05/24 History lisinopril 30 mg tablet 30 mg PO DAILY 11/05/24 11/05/24 History progesterone micronized 100 mg 100 mg PO DAILY 11/05/24 11/05/24 History capsule sumatriptan succinate 100 mg tablet See Rx Instructions .Route .COMPLEX 11/05/24 11/05/24 History Allergies Allergies Allergy/AdvReac Type Severity Reaction Status Date / Time gluten (GLUTEN) Allergy Unknown CELIAC Unverified 10/24/19 19:52 DISEASE doxycycline Allergy Rash Verified 11/04/24 11:58 quetiapine (From Seroquel) AdvReac Hyperactivity, Verified 11/04/24 11:58 restlessness, unable to stop moving. Mental Status Exam Mental Status Exam Narrative: Alert, oriented, in no acute distress. Calm, cooperative, engaged. No psychomotor agitation or neurovegetative retardation. Eye contact maintained. Mood depressed, affect constricted, irritable edge without notable lability. Speech normal. Thought process linear, coherent. Thought content related to stressors, transient hopelessness and intrusive SI in past week, no current ideation, intention, urge or plan. Denies any aggressive ideation or HI. No paranoia or delusional content elicited. No evidence of psychosis. Insight and judgment - fair but adequate Assessment & Plan Assessment & Plan (1) Bipolar affective, depress, severe: Status: Acute Code(s): F31.4 - Bipolar disorder, current episode depressed, severe, without psychotic features (2) KIERA (generalized anxiety disorder): Status: Acute Code(s): F41.1 - Generalized anxiety disorder Plan Admit to [facility] VS reviewed: afebrile, BP 120/78;?84 bpm increase dose of ABilify to 10 mg/d and split dose 5 mg BID for better tolerance/mitigate side effects increase lamotrigine to 100 mg BID for one week then increase to 150 mg BID continue other regular medications for now Routine lab work as indicated EKG, routine for baseline QTc for medication considerations as indicated UDS as indicated MassPat reviewed Continue to monitor as per protocol Patient educated on: diagnosis and medication risk/benefits Informed Consent: understands Reason for continued partial hosp. stay Substantial Risk for: inability to function and med/psych decompensation Certification I certify that partial hospital treatment is medically necessary due to the symptoms and problems resulting from the patient's mental illness and the failure to treat the patient at the partial hospital level of care would likely result in the patient requiring inpatient psychiatric care which could not be prevented at a less intensive level of care. Time Spent With Patient Time: Total time managing care of this patient today __90__ minutes.
--- NOTE | 2024-11-11 12:59 | HO.PHP ---
Liquefier spoke with the [facility] ([phone]) and completed a referral for Radha. They reported that there is a two to three week wait.
--- NOTE | 2024-11-12 19:46 | P.PNPSP_ITS ---
Subjective Subjective Date of Service: 11/12/24 Reason For Visit: anxiety Interim History: Difficult weekend, intrusive SI thoughts. Last night as well. I context of being in the middle of a divorce which is very stressful and causing considerable anxiety. Medication changes thus far, starting lithium and titrating lamotrigine I've noticed some decrease in depression and SI SI persists but less intense but still acute and bothersome. Had been experiencing more panic symptoms in the past 6 months and had 2 in the past few days. Trauma-related response descreibed Takes Klonopin moreso at night, helps with sleep, might be too sedating at effective dose for anxiety during day. Discussed starting PRN medication for acute SI and intrusiveness of these thoughts, causing agitation, some irritability. Though does seem less irritable edge today, more agreeable. Will also start prazosin to help wtih somatic anxiety, help tone down autonomic response, soni start at 6pm. If not sedating may consider BID dosing. Plan to titrate Lamictal to 300 mg this weekend. Medication Compliance: Yes Side effects from medications: No Attending Groups: Yes Review of Systems Acute medical concerns: No Mental Status Exam Mental Status Exam Narrative: Alert, oriented, in no acute distress. Calm, cooperative, engaged. No psychomotor agitation or neurovegetative retardation. Eye contact maintained. Mood depressed, affect constricted, irritable edge without notable lability. Speech normal. Thought process linear, coherent. Thought content related to stressors, transient helplessness, no hopelessness noted, denies SI, intention, urge or plan. Denies any aggressive ideation or HI. No paranoia or delusional content elicited. No evidence of psychosis. Insight and judgment - fair but adequate Diagnostics Vital Signs (24Hr): BMI result Body Mass Index 24.5 Assessment & Plan Assessment & Plan (1) Bipolar affective, depress, severe: Status: Acute Code(s): F31.4 - Bipolar disorder, current episode depressed, severe, without psychotic features (2) KIERA (generalized anxiety disorder): Status: Acute Code(s): F41.1 - Generalized anxiety disorder Plan continue PHP start risperidone 0.125-0.25 mg BID prn agitation/intrusive thoughts/acute SI start prazosin 1 mg qhs continue lamotrigine 200 mg qd, plan to titrate to 300 mg qd next week continue lithium 150 mg BID continue Abilify 10 mg qd continue duloxetine 40 mg qd continue clonazepam 0.5 mg qd prn anxiety continue Adderall XR 20 mg qam continue Adderall 5 mg qd prn focus/adhd continue regular medications: lisinopril 30 mg, progesterone 100 mg, sumatriptan,estradiol, lidocaine patch, Routine lab work as indicated EKG, routine for baseline QTc for medication considerations as indicated UDS as indicated MassPat reviewed Continue to monitor Patient educated on: diagnosis and medication risk/benefits Informed Consent: understands Reason for contiued partial hosp. stay Substantial Risk for: harm to self, inability to function and med/psych decompensation Certification I certify that partial hospital treatment is medically necessary due to the symptoms and problems resulting from the patient's mental illness and the failure to treat the patient at the partial hospital level of care would likely result in the patient requiring inpatient psychiatric care which could not be prevented at a less intensive level of care. Total time managing care of this patient today _30___ minutes. Discharge Plan Discharge Attending provider: Candelaria Carlisle Medications: New lithium carbonate 150 mg capsule 150 mg PO BID Qty: 30 0RF lamotrigine 100 mg tablet See Rx Instructions .ROUTE .COMPLEX Qty: 45 0RF Rx Instructions: take 1 tablet po BID for one week then increase to 1.5 tablets po BID prazosin 1 mg capsule 1 mg PO QPM Qty: 20 0RF risperidone 0.25 mg tablet 0.125 - 0.25 mg PO BID PRN (Reason: agitation/intrusive thoughts) Qty: 20 0RF Continued aripiprazole 10 mg Tablet 10 mg PO DAILY duloxetine 40 mg Capsule, Delayed Rel Sprinkle 40 mg PO DAILY clonazepam 0.5 mg tablet 0.5 mg PO DAILY PRN (Reason: anxiety) lidocaine 5 % Adhesive Patch,Medicated 1 patch TOPICAL DAILY Rx Instructions: leave on most painful area for up to 12 hrs estradiol 0.5 mg/0.5 gram (0.1 %) gel in packet See Rx Instructions .ROUTE .COMPLEX Rx Instructions: PLACE 1 PACKET ONTO THE RIGHT OR LEFT UPPER THIGH ON ALTERNATING DAYS ONCE DAILY Discontinued propranolol 60 mg capsule,extended release 24 hr See Rx Instructions .ROUTE .COMPLEX Rx Instructions: 60 mg daily. Patient stated she was taken off this medication. Was taking this medication for migraines. No Action lamotrigine 150 mg Tablet 150 mg PO DAILY sumatriptan succinate 100 mg tablet See Rx Instructions .ROUTE .COMPLEX Rx Instructions: TAKE 1 TABLET BY MOUTH NEEDED FOR MIGRAINE. CAN REPEAT DOSE IN 2 HOURS IF NEEDED. DO NOT EXCEED 2 TABLETS IN A 24 HOUR PERIOD. lamotrigine 25 mg tablet 25 mg PO DAILY dextroamphetamine-amphetamine 20 mg capsule,extended release 24hr 1 cap PO DAILY lisinopril 30 mg tablet 30 mg PO DAILY dextroamphetamine-amphetamine 5 mg tablet 1 tab PO DAILY PRN (Reason: ADHD) progesterone micronized 100 mg capsule 100 mg PO DAILY Stand Alone Forms: Patient Portal Discharge page Print Language: Greenlandic
[2024-11-15 10:52] VITALS: BP 120/78; PULSE 84
--- NOTE | 2024-11-16 00:04 | HO.PHPPROGNO ---
Subjective Subjective Date of Service: 11/15/24 Reason For Visit: anxiety Interim History: Starting to feel more stable, lithium has been helpful. I didn't wake feeling desperate and awful like usual Denies h/h/SI or SIB thoughts. Taking meds and able to get to sleep at 11pm and fall straight asleep. Her girlfriend mentioned that she seems to be good. Had a difficult AM in terms of ADHD challenges Medication Compliance: Yes Side effects from medications: No Attending Groups: Yes Review of Systems Acute medical concerns: No Mental Status Exam Mental Status Exam Narrative: Alert, oriented, in no acute distress. Calm, cooperative, engaged. No psychomotor agitation or neurovegetative retardation. Eye contact maintained. Mood depressed, affect constricted, irritable edge without notable lability. Speech normal. Thought process linear, coherent. Thought content related to stressors, transient helplessness, no hopelessness noted, denies SI, intention, urge or plan. Denies any aggressive ideation or HI. No paranoia or delusional content elicited. No evidence of psychosis. Insight and judgment - fair but adequate Diagnostics Vital Signs (24Hr): Vital Signs - 24 hr 11/15/24 10:52 Pulse Rate 84 Blood Pressure 120/78 BMI result Body Mass Index 24.5 Assessment & Plan Assessment & Plan (1) Bipolar affective, depress, severe: Status: Acute Code(s): F31.4 - Bipolar disorder, current episode depressed, severe, without psychotic features (2) KIERA (generalized anxiety disorder): Status: Acute Code(s): F41.1 - Generalized anxiety disorder Plan continue PHP continue risperidone 0.125-0.25 mg BID prn agitation/intrusive thoughts/acute SI continue prazosin 1 mg qhs continue lamotrigine 175 mg qd increase lithium from 150 mg BID to 450 mg ER qhs continue Abilify 10 mg qd continue duloxetine 40 mg qd continue clonazepam 0.5 mg qd prn anxiety continue Adderall XR 20 mg qam continue Adderall 5 mg qd prn focus/adhd continue regular medications: lisinopril 30 mg, progesterone 100 mg, sumatriptan,estradiol, lidocaine patch, Routine lab work as indicated EKG, routine for baseline QTc for medication considerations as indicated UDS as indicated MassPat reviewed Continue to monitor Patient educated on: diagnosis and medication risk/benefits Informed Consent: understands Reason for contiued partial hosp. stay Substantial Risk for: harm to self, inability to function and med/psych decompensation Certification I certify that partial hospital treatment is medically necessary due to the symptoms and problems resulting from the patient's mental illness and the failure to treat the patient at the partial hospital level of care would likely result in the patient requiring inpatient psychiatric care which could not be prevented at a less intensive level of care. Total time managing care of this patient today ___30_ minutes. Discharge Plan Discharge Attending provider: Candelaria Carlisle Medications: New risperidone 0.25 mg tablet 0.125 - 0.25 mg PO BID PRN (Reason: agitation/intrusive thoughts) Qty: 20 0RF lamotrigine 150 mg tablet 150 mg PO BID Qty: 60 0RF metformin 500 mg tablet 250 mg PO BID Qty: 30 0RF aripiprazole 5 mg tablet 5 mg PO BID Qty: 60 0RF duloxetine 30 mg capsule,delayed release(DR/EC) 30 mg PO DAILY Qty: 14 0RF Continued duloxetine 40 mg Capsule, Delayed Rel Sprinkle 40 mg PO DAILY sumatriptan succinate 100 mg tablet See Rx Instructions .ROUTE .COMPLEX Rx Instructions: TAKE 1 TABLET BY MOUTH NEEDED FOR MIGRAINE. CAN REPEAT DOSE IN 2 HOURS IF NEEDED. DO NOT EXCEED 2 TABLETS IN A 24 HOUR PERIOD. clonazepam 0.5 mg tablet 0.5 mg PO DAILY PRN (Reason: anxiety) lidocaine 5 % Adhesive Patch,Medicated 1 patch TOPICAL DAILY Rx Instructions: leave on most painful area for up to 12 hrs lisinopril 30 mg tablet 30 mg PO DAILY estradiol 0.5 mg/0.5 gram (0.1 %) gel in packet See Rx Instructions .ROUTE .COMPLEX Rx Instructions: PLACE 1 PACKET ONTO THE RIGHT OR LEFT UPPER THIGH ON ALTERNATING DAYS ONCE DAILY prazosin 1 mg capsule 1 mg PO QPM Qty: 30 0RF lithium carbonate 450 mg tablet extended release 450 mg PO BEDTIME Qty: 30 0RF progesterone micronized 100 mg capsule 100 mg PO DAILY Qty: 30 0RF dextroamphetamine-amphetamine 20 mg capsule,extended release 24hr 1 cap PO DAILY Qty: 30 0RF dextroamphetamine-amphetamine 5 mg tablet 1 tab PO DAILY PRN (Reason: ADHD) Qty: 30 0RF Discontinued lamotrigine 150 mg Tablet 150 mg PO DAILY aripiprazole 10 mg Tablet 10 mg PO DAILY lamotrigine 25 mg tablet 25 mg PO DAILY propranolol 60 mg capsule,extended release 24 hr See Rx Instructions .ROUTE .COMPLEX Rx Instructions: 60 mg daily. Patient stated she was taken off this medication. Was taking this medication for migraines. Stand Alone Forms: Patient Portal Discharge page Patient Education: Bipolar Disorder (ED), Bipolar Disorder (DC), PTSD (Post Traumatic Stress Disorder) (ED), PTSD (Post Traumatic Stress Disorder) (DC) Print Language: Greek
--- NOTE | 2024-11-25 23:07 | HO.PHPPROGNO ---
Subjective Subjective Date of Service: 11/25/24 Reason For Visit: anxiety Interim History: Patient seen for follow-up, anticipating discharge at the end of program today.? Patient reports overall improvement, less intrusive thoughts , mood is much better regulated. Feels in control without emotional outbursts she reports that the prazosin has been helpful especially with PTSD and not feeling so hypervigilant in the evenings. I suggest she could try moving a little earlier in the evening to see if this would be helpful. Alternatively, if no sedation occurssedation occurs, she could try taking a dose at lunch and then again in time. She reports PTSD severity at a 4/10 down from a 7 or 8 she especially notes that her physical anxiety has been quelled and has not had any panic attacks since starting on prazosin. Grossly concerns at this time is potential weight gain which she has experienced in past when on lithium, although those noted that she was also on Abilify at that time too and has not been on lithium without Abilify. She also complains of some emotional blunting and feeling ?disconnected? ?feel distant from people and things . She remains on duloxetine 40 mg which did not contribute much to improving her depression now that mood has improved with combination of mood stabilizers we will see if she can afford to reduce/taper the duloxetine. Reports no other acute issues or concerns. Medication compliant, medications well-tolerated. Denies any adverse effects.? Mood is stable.? Denies any hopelessness or SI. Denies thoughts of harming self or others at this time. Denies any aggressive ideation or HI. Denies any paranoia or AH or VH. Sleep, appetite, energy stable. Mental Status Exam Mental Status Exam Narrative: Alert, oriented, in no acute distress. Calm, cooperative. Mood stable, affect appropriate. Speech normal. Thought process linear, coherent, more goal-directed. Thought content related to stressors, future-oriented, denies any helplessness, hopelessness or SI.? No aggressive ideation or HI. No paranoia or delusional content elicited. No evidence of psychosis. Insight and judgment fair-good. Diagnostics Vital Signs (24Hr): BMI result Body Mass Index 24.5 Assessment & Plan Assessment & Plan (1) Bipolar affective, depress, severe: Status: Acute Code(s): F31.4 - Bipolar disorder, current episode depressed, severe, without psychotic features (2) KIERA (generalized anxiety disorder): Status: Acute Code(s): F41.1 - Generalized anxiety disorder Plan Discharge from [facility] 1.will lower duloxetine from 40 mg to 30 mg qd given complaints emotional blunting 2. if emotional blunting improved with tapering duloxetine, will consider lowering lithium er from 450 mg to 300 mg (since pt attributes emotional blunting to Li as well as weight gain) 3. other considerations is whether ABilify is causing weight gain (in past patient was on [place] and Abilify simultaneously) continue other medications: increase lamotrigine to 175 mg for next 4-5 days then increase to 200 mg Continue other regular medications? Refills sent to pharmacy Will follow-up next week regarding the duloxetine. If no other changes are made at that time we will defer further medication management to outpatient provider *Safety plan reviewed *Discharge diagnoses, treatment course, discharge plan have been reviewed with patient (including medication regime, medication management, potential side effects) as well as treatment rationale were also revisited *Discharge paperwork signed and given to patient, copy sent for scanning to chart Patient educated on: diagnosis and medication risk/benefits Informed Consent: understands Reason for contiued partial hosp. stay Substantial Risk for: stable for discharge Certification I certify that partial hospital treatment is medically necessary due to the symptoms and problems resulting from the patient's mental illness and the failure to treat the patient at the partial hospital level of care would likely result in the patient requiring inpatient psychiatric care which could not be prevented at a less intensive level of care. Total time managing care of this patient today __40__ minutes. Discharge Plan Discharge Attending provider: Candelaria Carlisle Medications: New risperidone 0.25 mg tablet 0.125 - 0.25 mg PO BID PRN (Reason: agitation/intrusive thoughts) Qty: 20 0RF lamotrigine 150 mg tablet 150 mg PO BID Qty: 60 0RF metformin 500 mg tablet 250 mg PO BID Qty: 30 0RF aripiprazole 5 mg tablet 5 mg PO BID Qty: 60 0RF duloxetine 30 mg capsule,delayed release(DR/EC) 30 mg PO DAILY Qty: 14 0RF Continued duloxetine 40 mg Capsule, Delayed Rel Sprinkle 40 mg PO DAILY sumatriptan succinate 100 mg tablet See Rx Instructions .ROUTE .COMPLEX Rx Instructions: TAKE 1 TABLET BY MOUTH NEEDED FOR MIGRAINE. CAN REPEAT DOSE IN 2 HOURS IF NEEDED. DO NOT EXCEED 2 TABLETS IN A 24 HOUR PERIOD. clonazepam 0.5 mg tablet 0.5 mg PO DAILY PRN (Reason: anxiety) lidocaine 5 % Adhesive Patch,Medicated 1 patch TOPICAL DAILY Rx Instructions: leave on most painful area for up to 12 hrs lisinopril 30 mg tablet 30 mg PO DAILY estradiol 0.5 mg/0.5 gram (0.1 %) gel in packet See Rx Instructions .ROUTE .COMPLEX Rx Instructions: PLACE 1 PACKET ONTO THE RIGHT OR LEFT UPPER THIGH ON ALTERNATING DAYS ONCE DAILY prazosin 1 mg capsule 1 mg PO QPM Qty: 30 0RF lithium carbonate 450 mg tablet extended release 450 mg PO BEDTIME Qty: 30 0RF progesterone micronized 100 mg capsule 100 mg PO DAILY Qty: 30 0RF dextroamphetamine-amphetamine 20 mg capsule,extended release 24hr 1 cap PO DAILY Qty: 30 0RF dextroamphetamine-amphetamine 5 mg tablet 1 tab PO DAILY PRN (Reason: ADHD) Qty: 30 0RF Discontinued lamotrigine 150 mg Tablet 150 mg PO DAILY aripiprazole 10 mg Tablet 10 mg PO DAILY lamotrigine 25 mg tablet 25 mg PO DAILY propranolol 60 mg capsule,extended release 24 hr See Rx Instructions .ROUTE .COMPLEX Rx Instructions: 60 mg daily. Patient stated she was taken off this medication. Was taking this medication for migraines. Stand Alone Forms: Patient Portal Discharge page Patient Education: Bipolar Disorder (ED), Bipolar Disorder (DC), PTSD (Post Traumatic Stress Disorder) (ED), PTSD (Post Traumatic Stress Disorder) (DC) Print Language: Jamaican
== END 2024-11-25 23:59 | disposition home or self-care (01) ==
LOC: HO.PHPA 08:45
PROVIDERS: Visit Provider Psychiatry & Neurology Psychiatry
DX: F31.4 Bipolar disorder, current episode depressed, severe, without psychotic features (principal); F41.1 Generalized anxiety disorder; Z79.899 Other long term (current) drug therapy
CPT/HCPCS: 90791; 90853